=== PATIENT | female | born 1985 | race Asian ===

== ENCOUNTER 2024-11-04 14:10 | Emergency (ER) | payer OTHER, SELFPAY ==
[2024-11-04 14:12] VITALS: BP 161/101
[2024-11-04 14:43] LABS: % Basophils 0.3 % (0-2); % Eosinophils 2.1 % (0-6); % Immature Granulocytes 0.3 % (0-0.5); % Lymphocytes 32.7 % (20.5-51.1); % Monocytes 6.8 % (1.7-9.3); % Neutrophils 57.8 % (42.2-75.2); Absolute Eosinophils 0.3 10^3/uL (0-0.7); Absolute Monocytes 0.8 10^3/uL (0.1-0.6); Hemoglobin 13.9 g/dL (12.0-16.0); Mean Corp Hgb Conc. 33.1 g/dL (33.0-37.0); Mean Corpuscular Hgb 29.1 pg (27.0-31.0); Mean Corpuscular Volume 88.1 fL (81.0-99.0); Mean Platelet Volume 9.6 fL (7.4-10.4); Nucleated Red Blood Cells % 0 %; Platelet Count 299 10^3/uL (130-400); Red Blood Cell Count 4.77 10^6/uL (4.20-5.40); Red Cell Dist. Width 11.9 % (11.5-14.5); White Blood Cell Count 12.2 10^3/uL (4.8-10.8)
[2024-11-04 14:49] LABS: HCG, Serum Qualitative Screen Negative
[2024-11-04 14:55] LABS: ALT (SGPT) 41 U/L (0-35); AST (SGOT) 39 U/L (14-36); Albumin 4.4 g/dl (3.5-5.0); Alkaline Phosphatase 86 U/L (38-126); Blood Urea Nitrogen 10 mg/dl (7-17); Calcium 9.2 mg/dl (8.4-10.2); Carbon Dioxide 27 mmol/L (22-30); Chloride 107 mmol/L (98-107); Glucose 125 mg/dl (70-99); Potassium 4.1 mmol/L (3.5-5.1); Sodium 141 mmol/L (135-145); Total Bilirubin 0.6 mg/dl (0.2-1.3); Total Protein 8.1 g/dl (6.3-8.2); eGFR > 60.00
--- NOTE | 2024-11-04 18:04 | ED.GENMED ---
History of Present Illness
General
Chief Complaint: Vaginal Bleeding
Source: patient
Exam Limitations: none
Time Seen by Provider: 11/04/24 18:04
Nursing documentation reviewed up to this point in time: agreed with
History of Present Illness
History of Present Illness:
Patient is a 39-year-old female presents to the ER for evaluation of abnormal vaginal bleeding. Patient reports she has not had a period since August 26 but started heavy vaginal bleeding today . She reports she went through 3 super tampons in 3
hours. She does have cramping which is more intense and not like her typical period cramps. She took multiple test at home which were negative. She denies any lightheaded dizziness. Denies any UTI symptoms no recent fever chills or
illness. She has an appoint with her GENERAL SCRAP WORKER on Monday. She is no prior history of pregnancies.
Review of Systems
Review of Systems
Allergies reviewed?: Yes
All Other Systems: ROS reviewed and negative except as documented in HPI and ROS
Constitutional: Reports no symptoms
ABD/GI: Reports other (lower pelvic cramping )
: Reports bleeding
Musculoskeletal: Reports no symptoms
Skin: Reports no symptoms
Neurological: Reports no symptoms
Psychiatric: Reports no symptoms
Phy Exam
General Physical Exam
General Presentation: no apparent distress
General age: appears stated age
General Skin: warm and dry
General Habitus: normal
General Mental: alert
General Hydration: appears well hydrated
Gastrointestinal Exam
Gastrointestinal Exam: soft and other (mild lower abdominal tendernes )
Genitourinary Exam Female
Exam Female: other (+ blood in vaginal vault small oozing of blood from cervix )
Neurological Exam
Neurological Exam: alert and oriented x3
Musculoskeletal Exam
Musculoskeletal Exam: full ROM
Skin Exam
Skin Exam: normal color and warm/dry
Psychiatric Exam
Psychiatric Exam: normal mood/affect
Course
Orders/Labs/Results
Orders:
Orders
11/04/24 14:19
Test Result ONCE
11/04/24 14:22
Complete Blood Count/With Diff Urgent
Comprehensive Metabolic Panel Urgent
HCG, Serum Qualitative Screen Urgent
11/04/24 18:19
US Pelvis Only (non-obstetric) Urgent
Comment:
Reason For Exam: pain /bleeding
Abnormal Lab Results
11/04/24
14:22
WBC 12.2 H 10^3/uL
(4.8-10.8)
Absolute Neuts (auto) 7.0 H 10^3/uL
(1.4-6.5)
Absolute Lymphs (auto) 4.0 H 10^3/uL
(1.2-3.4)
Absolute Monos (auto) 0.8 H 10^3/uL
(0.1-0.6)
Glucose 125 H mg/dl
(70-99)
AST 39 H U/L
(14-36)
ALT 41 H U/L
(0-35)
11/04/24 14:22
11/04/24 14:22
Vital Signs
Initial and Last Documented VS:
Initial Vital Signs
Temp Pulse Resp BP Pulse Ox
98.4 F 91 18 161/101 98
11/04/24 14:12 11/04/24 14:12 11/04/24 14:12 11/04/24 14:12 11/04/24 14:12
Last Documented Vital Signs
Temp Pulse Resp BP Pulse Ox
98.4 F 84 18 138/75 99
11/04/24 14:12 11/04/24 19:31 11/04/24 19:31 11/04/24 19:31 11/04/24 19:31
MDM/Problems Addressed
Differential Diagnosis Includes:
Not limited to miscarriage, irregular abnormal bleeding and college kids at home they probably
MDM/Problems Addressed:
As documented patient is a 39-year-old female who started having vaginal bleeding this morning however she has not had her period since August. Her test is negative and US is also negative. On exam patient has blood in the vaginal vault
some oozing of blood from the cervix but no acute significant bleeding. No recent fever chills illness or white count is mildly elevated however again no infectious symptoms. She is very well-appearing nontoxic.
She has an appointment with her GENERAL SCRAP WORKER on Monday for follow-up because of irregular periods discussed close outpatient follow-up and to return if any worsening of symptoms.
*Pulse Oximetry
Patient hypoxic: no
*Critical Care Note
Total Time (30-74mins, 75-104mins- exclusive of procedures): Not Applicable
ED Attending Note
-
Portions of this chart may have been created with voice recognition software.� Occasional wrong word or��sound alike� substitutions may have occurred due to the inherent limitations of voice recognition software.
Discharge Plan
Departure
Patient Disposition: Home (Routine Discharge)
Date of Disposition: 11/04/24
Time of Disposition: 21:11
Patient with high blood pressure during this ER visit?: Yes
Condition: Fair
Covid-19: Not Applicable
Discharge Problem:
Vaginal bleeding
Instructions: Heavy Periods (DC), BLOOD PRESSURE
Referrals:
NONE,* [Family Provider] -
Stand Alone Forms: Return to Work
Activity Restrictions/Additional Instructions:
As discussed your ultrasound was unremarkable your hemoglobin is stable. Please follow-up with PEDIATRIC ASSISTANT as scheduled on Monday return if any worsening of symptoms.
Interventions
Interventions:
*Risk Screen - Suicide Last Done: 11/04/24 14:12
*General Assessment Last Done: 11/04/24 18:22
*Neglect/Abuse Screening Last Done: 11/04/24 14:12
*ED- Fall Risk Assessment Last Done: 11/04/24 18:22
*ED COVID-19 Vaccine History Last Done: 11/04/24 18:22
ED-Female Genitourinary Assessment Last Done: 11/04/24 18:24
Discharge Date and Time
Print Language: INDONESIAN
[2024-11-04 18:25] VITALS: BP 135/86; BMI 43.3
[2024-11-04 19:31] VITALS: BP 138/75
[2024-11-04 21:09] VITALS: BP 156/75
== END 2024-11-04 21:24 | disposition home or self-care (01) ==
LOC: EMR 14:10
PROVIDERS: Emergency Medicine; EMERGENCY PHYSICIAN Emergency Medicine
DX: N93.9 Abnormal uterine and vaginal bleeding, unspecified (principal); Z32.02 Encounter for pregnancy test, result negative
CPT/HCPCS: 99284; 76856; 80053; 84703; 85025

== ENCOUNTER → 2025-01-07 12:12 | Outpatient (REF) | payer OTHER, SELFPAY | LOC: RAD 12:12 | PROVIDERS: ATTENDING PHYSICIAN Obstetrics & Gynecology | DX: Z31.41 Encounter for fertility testing (principal); N97.9 Female infertility, unspecified | CPT/HCPCS: 58340; 74740 ==